=== PATIENT | female | born 1960 | race Caucasian/White ===

== ENCOUNTER 2018-09-17 18:39 | Emergency (ER) | payer BC ==
[2018-09-17] MEDS ORDERED: Sodium Chloride 0.9% 10 ML Syringe FLUSH PRN (19:01)
[2018-09-17 19:42] LABS: CHLORIDE,CL 106 mmol/L (98-107); SODIUM,NA 141 mmol/L (136-145)
[2018-09-17 19:45] LABS: ANION GAP 15.2 mmol/L (10-20)
--- NOTE | 2018-09-17 20:43 | EDM.PDOC ---
ED HPI GENERAL MEDICAL PROBLEM - General Chief Complaint: Cardiovascular Problem Time Seen by Provider: 09/17/18 18:40 Source of Information: Reports: Patient History Limitations: Reports: No Limitations - History of Present Illness INITIAL COMMENTS - FREE TEXT/NARRATIVE: Pt. presents to ER with complaints of lightheadedness, palpitations, and near syncope. Pt. underwent ABDIFATAH which contained celestone. Pt. states that she did not have any symptoms prior immediately after the injection, and states that she has had this medication in the past without any abnormality. She states that the symptoms have been intermittent in nature. She works at a [employer] for [employer] and did take her vit. Her heart rate was 170, and her BP was 80 systolic. It was at that time that she was symptomatic. Her symptoms had resolved on arrival to ER. She offered no complaints on arrival to ER. Denies any chest pain or shortness of breath. Onset: Today Onset Date: 09/17/18 Location: Reports: Chest, Generalized Quality: Reports: Dull - Related Data Allergies Allergy/AdvReac Type Severity Reaction Status Date / Time No Known Allergies Allergy Verified 09/17/18 19:01 Home Meds: Home Meds Calcium Carbonate/Vitamin D3 [Liquid Calcium with Vitamin D] 1 each PO DAILY [History] Cholecalciferol (Vitamin D3) [Vitamin D] 5,000 unit PO DAILY 07/11/14 [History] Loratadine 10 mg PO DAILY 07/11/14 [History] Multivitamin [Multi-Vitamin Daily] 1 tab PO DAILY 07/11/14 [History] Rosuvastatin Calcium [Crestor] 5 mg PO DAILY 07/11/14 [History] buPROPion HCl [Wellbutrin Xl] 300 mg PO DAILY 07/11/14 [History] Sulfacetamide Sodium/Sulfur [Sulfacetamide-Sulfur 10-5% Crm] 1 applic TOP DAILY 11/15/14 [History] Vortioxetine Hydrobromide [Brintellix] 20 mg PO DAILY 11/15/14 [History] Biotin 1 mg PO DAILY 09/17/18 [History] Docusate Sodium [Colace] 200 mg PO DAILY 09/17/18 [History] Magnesium Oxide [Magnesium] 500 mg PO DAILY 09/17/18 [History] Turmeric Root Extract [Turmeric] 1,000 mg PO DAILY 09/17/18 [History] traZODone HCl [Trazodone HCl] 25 mg PO BEDTIME 09/17/18 [History] Past Medical History Cardiovascular History: Reports: High Cholesterol Musculoskeletal History: Reports: Neck Pain, Chronic Psychiatric History: Reports: Depression Social & Family History - Tobacco Use Smoking Status *Q: Never Smoker - Living Situation & Occupation Living situation: Reports: Other ED ROS GENERAL - Review of Systems Review Of Systems: See Below Constitutional: Reports: Diaphoresis HEENT: Reports: No Symptoms Respiratory: Reports: No Symptoms Cardiovascular: Reports: Other (see HPI) Endocrine: Reports: No Symptoms GI/Abdominal: Reports: No Symptoms : Reports: No Symptoms Musculoskeletal: Reports: No Symptoms Skin: Reports: Diaphoresis Neurological: Reports: No Symptoms Psychiatric: Reports: No Symptoms ED EXAM, GENERAL - Physical Exam Exam: See Below Exam Limited By: No Limitations General Appearance: Alert, WD/WN, No Apparent Distress Throat/Mouth: Other (moist, no erythema) Head: Atraumatic, Normocephalic Neck: Normal Inspection, Supple, Non-Tender, Full Range of Motion Respiratory/Chest: No Respiratory Distress, Lungs Clear, Normal Breath Sounds, No Accessory Muscle Use, Chest Non-Tender Cardiovascular: Normal Peripheral Pulses, Regular Rate, Rhythm, No Edema, No Gallop, No JVD, No Murmur, No Rub Peripheral Pulses: 4+: Radial (L), Radial (R), Posterior Tibial (L), Posterior Tibial (R) GI/Abdominal: Normal Bowel Sounds, Soft, Non-Tender, No Organomegaly, No Distention (Female) Exam: Deferred Rectal (Female) Exam: Deferred Extremities: Normal Inspection, Normal Range of Motion, Non-Tender, Normal Capillary Refill, No Pedal Edema Neurological: Alert, Oriented, CN II-XII Intact, Normal Cognition, Normal Gait, Normal Reflexes, No Motor/Sensory Deficits Psychiatric: Normal Affect, Normal Mood Skin Exam: Warm, Dry, Intact, Pallor Lymphatic: No Adenopathy EKG INTERPRETATION Rhythm: NSR EKG Interpretation Comments: diffuse ST depression, mild Course - Vital Signs Last Recorded V/S: Last Vital Signs Temp 36.8 C 09/17/18 18:40 Pulse 79 09/17/18 20:10 Resp 18 09/17/18 18:40 BP 110/49 L 09/17/18 20:10 Pulse Ox 98 09/17/18 18:40 - Orders/Labs/Meds Orders: Active Orders 24 hr Category Date Time Status EKG Documentation Completion [RC] STAT Care 09/17/18 19:01 Active UA W/MICROSCOPIC [URIN] Stat Lab 09/17/18 19:02 Ordered Sodium Chloride 0.9% [Saline Flush] Med 09/17/18 19:01 Active 10 ml FLUSH ASDIRECTED PRN Peripheral IV Insertion Adult [OM.PC] Routine Oth 09/17/18 19:01 Ordered Medication Orders Sodium Chloride (Saline Flush) 10 ml FLUSH ASDIRECTED PRN PRN Reason: Keep Vein Open Labs: Laboratory Tests 09/17/18 09/17/18 09/17/18 Range/Units 19:14 19:14 19:14 WBC 4.9 (4.0-10.0) x10^3/uL RBC 4.38 (4.00-5.50) x10^6/uL Hgb 13.1 (12.0-16.0) g/dL Hct 40.5 (33.0-47.0) % MCV 92.5 (78.0-93.0) fL MCH 29.9 (26.0-32.0) pg MCHC 32.3 (32.0-36.0) g/dL RDW Coeff of Phuc 14.1 (10.0-15.0) % Plt Count 214 (130-400) x10^3/uL Neut % (Auto) 87.7 H (50.0-80.0) % Lymph % (Auto) 11.1 L (25.0-50.0) % [place] % (Auto) 1.2 L (2.0-11.0) % Eos % (Auto) 0.0 (0.0-4.0) % Baso % (Auto) 0.0 L (0.2-1.2) % PT 9.9 (9.6-11.4) SEC INR 0.9 L (2.0-3.5) Sodium 141 (136-145) mmol/L Potassium 4.2 (3.5-5.1) mmol/L Chloride 106 (98-107) mmol/L Carbon Dioxide 24 (21-32) mmol/L Anion Gap 15.2 (10-20) mmol/L BUN 15 (7-18) mg/dL Creatinine 1.1 H (0.55-1.02) mg/dL Est Cr Clr Drug Dosing TNP Estimated GFR (MDRD) 51 Glucose 156 H (74-106) mg/dL Calcium 9.4 (8.5-10.1) mg/dL Corrected Calcium 9.72 (8.5-10.1) mg/dL Phosphorus 3.0 (2.6-4.7) mg/dL Magnesium 2.2 (1.8-2.4) mg/dL Total Bilirubin 0.4 (0.2-1.0) mg/dL AST 21 (15-37) U/L ALT 23 (14-59) U/L Alkaline Phosphatase 72 (46-116) U/L Troponin I 0.058 H* (<=0.056) ng/mL C-Reactive Protein 0.3 (<=0.9) mg/dL Total Protein 7.2 (6.4-8.2) g/dL Albumin 3.6 (3.4-5.0) g/dL Globulin 3.6 Albumin/Globulin Ratio 1.00 Meds: Medications Generic Name Dose Route Start Last Admin Trade Name Freq PRN Reason Stop Dose Admin Sodium Chloride 10 ml 09/17/18 19:01 Saline Flush FLUSH ASDIRECTED PRN Keep Vein Open Departure - Departure Time of Disposition: 08:46 Disposition: DC/Tfer to Acute Hospital 02 Reason for Transfer *Q: Other Condition: Good Clinical Impression: NSTEMI (non-ST elevated myocardial infarction) Referrals: Keerthi Treviño DO [Primary Care Provider] - - Problem List Review Problem List Initiated/Reviewed/Updated: Yes - My Orders Last 24 Hours: My Active Orders 09/17/18 19:01 EKG Documentation Completion [RC] STAT Sodium Chloride 0.9% [Saline Flush] 10 ml FLUSH ASDIRECTED PRN Peripheral IV Insertion Adult [OM.PC] Routine 09/17/18 19:02 UA W/MICROSCOPIC [URIN] Stat - Assessment/Plan Last 24 Hours: My Active Orders 09/17/18 19:01 EKG Documentation Completion [RC] STAT Sodium Chloride 0.9% [Saline Flush] 10 ml FLUSH ASDIRECTED PRN Peripheral IV Insertion Adult [OM.PC] Routine 09/17/18 19:02 UA W/MICROSCOPIC [URIN] Stat Plan: Pt. will be transferred to [facility]. There is a good possibility that the elevated troponin is due to her tachycardia. She does have some very mild diffuse ST change. Findings most consistent with diffuse myocardial ischemia from tachycardia as there is no focal ST changes. She needs to be on telemetry and her troponin and EKGs will need to be trended. She should undergo an echocardiogram to determine if there is any issues with valvular heart disease or other abnormality. She will be transported via [facility] ground ambulance. Dr. Ferrell is accepting.
[2018-09-17 22:01] VITALS: BP 104/60
== END 2018-09-17 22:52 | disposition short-term general hospital (02) ==
LOC: VM.ED 18:39
DX: I21.4 Non-ST elevation (NSTEMI) myocardial infarction (principal); E78.00 Pure hypercholesterolemia, unspecified; Z79.899 Other long term (current) drug therapy
CPT/HCPCS: 36415; 80053; 83735; 84100; 84484; 85025; 85610; 86140; 93005; 99285-25

== ENCOUNTER 2025-01-24 10:59 | Day surgery (SDC) | payer BC, MEDICARE ==
[2025-01-24] MEDS: Lactated Ringers 1,000 ML IV SCH (11:14)
[2025-01-24] MEDS ORDERED: fentaNYL 100 MCG/2 ML SDV IVPUSH PRN (11:35)
[2025-01-24] MEDS ORDERED: Midazolam 1 MG/ML 2 ML SDV IVPUSH PRN (11:35)
[2025-01-24] MEDS ORDERED: Naloxone 0.4 MG/ML SDV IVPUSH PRN (11:35)
[2025-01-24] MEDS ORDERED: Ondansetron 4 MG/2 ML SDV IVPUSH PRN (11:40)
[2025-01-24] MEDS ORDERED: fentaNYL 100 MCG/2 ML SDV ONE ×2 (11:57→12:18)
[2025-01-24] MEDS ORDERED: Midazolam 1 MG/ML 2 ML SDV ONE ×2 (11:57→12:17)
[2025-01-24] MEDS ORDERED: Ondansetron 4 MG/2 ML SDV ONE ×2 (11:58)
[2025-01-24 13:07] VITALS: BP 120/60; PULSE 64
== END 2025-01-24 13:20 | disposition home or self-care (01) ==
LOC: VM.SDS 10:59
PROVIDERS: ATTEND Surgery
DX: Z12.11 Encounter for screening for malignant neoplasm of colon (principal); D12.6 Benign neoplasm of colon, unspecified; L82.1 Other seborrheic keratosis; E78.5 Hyperlipidemia, unspecified; Z88.5 Allergy status to narcotic agent; Z91.09 Other allergy status, other than to drugs and biological substances; Z79.899 Other long term (current) drug therapy
CPT/HCPCS: 88305; J2250; J2405; J3010; J7120